=== PATIENT | female | born 2000 | race Caucasian/White ===

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

== ENCOUNTER 2022-01-16 10:13 | Emergency (ER) | payer BC, OTHER ==
[~2022-01-16] VITALS: Ht 162.6 cm; Wt 56.4 kg
[2022-01-16 10:14] VITALS: BP 131/77
[2022-01-16] MEDS ORDERED: ESTA0.25 (10:26)
[2022-01-16] MEDS ORDERED: ONDANSETRON 4MG ORAL DISINTEGRATING TAB SL PRN (12:00)
[2022-01-16] MEDS ORDERED: ONDA4TAB6 PO (13:02)
== END 2022-01-16 13:10 | disposition home or self-care (01) ==
LOC: M ED 10:13
DX: A08.8 Other specified intestinal infections (principal); Z79.3 Long term (current) use of hormonal contraceptives

== ENCOUNTER → 2022-03-11 | Outpatient (REF) | payer BC, OTHER ==
[~2022-03-11] MED LIST changes: +ESTA0.25; +ONDA4TAB6 PO
== END ==
LOC: M LAB REF 15:57
PROVIDERS: ATTEND Physician Assistant
DX: N39.0 Urinary tract infection, site not specified (principal)

== ENCOUNTER → 2022-10-22 | Outpatient (CLI) | payer BC, OTHER | LOC: M WUC 11:55 | PROVIDERS: ATTEND Internal Medicine | DX: R05.9 Cough, unspecified (principal) ==

== ENCOUNTER → 2023-10-14 | Outpatient (REF) | payer BC, OTHER | LOC: M LAB REF 16:40 | PROVIDERS: ATTEND Physician Assistant | DX: R30.0 Dysuria (principal) ==

== ENCOUNTER → 2024-12-03 | Outpatient (REF) | payer OTHER ==
[~2024-12-03] MED LIST changes: +ONDA-282 PO; -ONDA4TAB6 PO
== END ==
LOC: M PLALAB 13:53
PROVIDERS: ATTEND Advanced Practice Midwife
DX: Z12.4 Encounter for screening for malignant neoplasm of cervix (principal); R87.615 Unsatisfactory cytologic smear of cervix; R87.618 Other abnormal cytological findings on specimens from cervix uteri

== ENCOUNTER → 2024-12-03 | Outpatient (CLI) | payer BC ==
[2024-12-03 18:48] LABS: HEMOGLOBIN A1c 5.2 % (4.0-6.0)
[2024-12-06 22:53] LABS: DEHYDROEPIANDROSTERONE SULFATE 224 mcg/dL (14-349)
== END ==
LOC: M PLALAB 15:04
PROVIDERS: ATTEND Advanced Practice Midwife
DX: N92.6 Irregular menstruation, unspecified (principal)